=== PATIENT | female | born 1970 | race Two or more races ===

== ENCOUNTER 2019-12-15 07:27 | Emergency (ER) | payer MEDICAID, OTHER ==
[~2019-12-15] VITALS: Ht 162.6 cm; Wt 83.9 kg
[2019-12-15 07:41] VITALS: BP 124/62
[2019-12-15] MEDS ORDERED: KETOROLAC TROMETH 30 MG/ML 1ML VIAL IV ONE (09:45)
== END 2019-12-15 10:02 | disposition home or self-care (01) ==
LOC: ER 07:27 → EDBD 07:27 → ER 10:02
DX: S16.1XXA Strain of muscle, fascia and tendon at neck level, initial encounter (principal); S46.911A Strain of unspecified muscle, fascia and tendon at shoulder and upper arm level, right arm, initial encounter; S20.211A Contusion of right front wall of thorax, initial encounter; V43.52XA Car driver injured in collision with other type car in traffic accident, initial encounter; Y93.I9 Activity, other involving external motion; Y92.410 Unspecified street and highway as the place of occurrence of the external cause; Y99.8 Other external cause status
CPT/HCPCS: 71046; 72040; 73030; 96374; 99284; J1885